=== PATIENT | female | born 1950 | race Caucasian/White ===

== ENCOUNTER 2016-11-26 17:13 | Emergency (ER) | payer BC, OTHER ==
[~2016-11-26] VITALS: Ht 165.1 cm; Wt 70.0 kg
[2016-11-26 17:15] VITALS: BP 202/119; PULSE 104; RESP 20; TEMP 98.1; O2SAT 98
[2016-11-26 17:25] VITALS: BP 119/80; PULSE 107; RESP 20; O2SAT 96
--- NOTE | 2016-11-26 17:30 | PD ---
HPI Chief Complaint: Nosebleed Time Seen by Provider: 17:24 Travel History International Travel<30 days: No Contact w/Intl Traveler<30days: No Traveled to known affect area: No History of Present Illness HPI 66-year-old female presents with bleeding from her gums and her nose over the past couple hours. She states that she hasn't had this before that she knows about. She states that she usually goes to [facility] but she wanted to come here to get a different opinion. She states that she has no other concurrent complaints. She brought her bag of tissues with her to show the amount of bleeding and she has a large bag noted with tissues with blood on them. She does not know if the bleeding is coming from one side more than the other and just feels like it's coming from everywhere. She states she doesn't take any blood thinners that she is aware of. She does state that she also bruises easily. PFSH Past Medical History Narrative Medical breast cancer, neuropathy, ADD, htn Cancer: Yes (BREAST) Hypertension: Yes Neurologic: Yes (NEUROPATHY) Tetanus Vaccination: < 5 Years Influenza Vaccination: Yes ?: Not Past Surgical History Abdominal Surgery: Yes (GASTRIC BYPASS, HERNIA) Cholecystectomy: Yes Hysterectomy: Yes Mastectomy: Yes (lumpectomy and lymph node resection) Social History Alcohol Use: No Tobacco Use: No Substance Use: No Allergies-Medications (Allergen,Severity, Reaction): Coded Allergies: No Known Allergies (Unverified , 11/26/16) Reported Meds & Prescriptions Reported Meds & Active Scripts Active Reported Gabapentin Unknown Strength Cap 1 Tab PO TID Cymbalta DR (Duloxetine HCl) Unknown Strength Capdr 1 Tab PO BID Benazepril (Benazepril HCl) Unknown Strength Tab 1 Tab PO BID Review of Systems Except as stated in HPI: all other systems reviewed are Neg Physical Exam Narrative GENERAL: Well-nourished, well-developed patient. SKIN: Warm and dry. HEAD: Normocephalic and atraumatic. EYES: No injection or drainage. ENT: Small amount of blood noted to left nare, blood noted to oropharynx and small amount of oozing around lower gums NECK: Supple, trachea midline. CARDIOVASCULAR: Regular rate and rhythm RESPIRATORY: Breath sounds equal bilaterally. No accessory muscle use. NEUROLOGICAL: Awake and alert. Motor and sensory grossly within normal limits. Normal speech. Data Data Last Documented VS Vital Signs Date Time Temp Pulse Resp B/P Pulse Ox O2 Delivery O2 Flow Rate FiO2 11/26/16 17:47 98 Room Air 11/26/16 17:25 107 20 119/80 11/26/16 17:15 98.1 Orders Magnesium (Mg) (11/26/16 17:30) Phosphorus (Po4) (11/26/16 17:30) Complete Blood Count With Diff (11/26/16 17:30) Basic Metabolic Panel (Bmp) (11/26/16 17:30) Act Partial Throm Time (Ptt) (11/26/16 17:30) Prothrombin Time / Inr (Pt) (11/26/16 17:30) Iv Access Insert/Monitor (11/26/16 17:30) Ecg Monitoring (11/26/16 17:30) Oximetry (11/26/16 17:30) Type And Screen (11/26/16 17:30) Labs Laboratory Tests Test 11/26/16 17:35 White Blood Count 7.5 TH/MM3 Red Blood Count 4.01 MIL/MM3 Hemoglobin 11.1 GM/DL Hematocrit 35.1 % Mean Corpuscular Volume 87.5 FL Mean Corpuscular Hemoglobin 27.6 PG Mean Corpuscular Hemoglobin 31.6 % Concent Red Cell Distribution Width 14.3 % Platelet Count 494 TH/MM3 Mean Platelet Volume 7.2 FL Neutrophils (%) (Auto) 63.4 % Lymphocytes (%) (Auto) 25.2 % Monocytes (%) (Auto) 5.5 % Eosinophils (%) (Auto) 5.2 % Basophils (%) (Auto) 0.7 % Neutrophils # (Auto) 4.7 TH/MM3 Lymphocytes # (Auto) 1.9 TH/MM3 Monocytes # (Auto) 0.4 TH/MM3 Eosinophils # (Auto) 0.4 TH/MM3 Basophils # (Auto) 0.1 TH/MM3 CBC Comment DIFF FINAL Differential Comment Prothrombin Time 10.7 SEC Prothromb Time International 1.0 RATIO Ratio Activated Partial 28.3 SEC Thromboplast Time Sodium Level 142 MEQ/L Potassium Level 3.5 MEQ/L Chloride Level 104 MEQ/L Carbon Dioxide Level 32.4 MEQ/L Anion Gap 6 MEQ/L Blood Urea Nitrogen 9 MG/DL Creatinine 0.60 MG/DL Estimat Glomerular Filtration 101 ML/MIN Rate Random Glucose 107 MG/DL Calcium Level 9.0 MG/DL Phosphorus Level 3.4 MG/DL Magnesium Level 2.3 MG/DL Blood Type O POSITIVE Antibody Screen NEGATIVE Blood Bank Comment MDM Medical Decision Making Medical Screen Exam Complete: Yes Emergency Medical Condition: Yes Interpretation(s) CBC & BMP Diagram 11/26/16 17:35 Differential Diagnosis Anemia, thrombocytopenia, von Willebrand's disease, hypercoagulable.... Narrative Course Will check blood work and monitor. No indication currently for nasal packing given only small amount from left nare, bleeding is mainly from gums Bleeding has stopped on exam. Labs are stable. Patient states she has follow- up with her primary tomorrow. Advised to follow with them for further care and given return instructions. Patient is concerned this is her third visit for this between [facility] and [facility] and I told her there is no indication for her to stay currently but to return if she has any emergent need, patient has not been to [facility] and [place] records not received by time of patient discharge Diagnosis Primary Impression: Bleeding gums Patient Instructions: General Instructions Additional Instructions: follow with primary tommorrow, return as needed, if significant bleeding returns apply pressure for 5 minutes Med/Other Pt SpecificInfo: No Change to Meds Disposition: 01 DISCHARGE HOME Condition: Stable Cinda Ayers MD Nov 26, 2016 17:30
[2016-11-26 17:47] VITALS: O2SAT 98
[2016-11-26] MEDS ORDERED: BENA5TAB PO (17:52)
[2016-11-26] MEDS ORDERED: GABA100C4 PO (17:52)
[2016-11-26] MEDS ORDERED: DULO20 PO (17:52)
[2016-11-26 17:59] LABS: AUTOMATED NEUTROPHIL # 4.7 TH/MM3 (1.8-7.7); BASOPHIL # 0.1 TH/MM3 (0-0.2); BASOPHIL % 0.7 % (0.0-2.0); EOSINOPHIL # 0.4 TH/MM3 (0-0.4); EOSINOPHIL % 5.2 % (0.0-4.0); HEMATOCRIT 35.1 % (35.0-46.0); HEMO FLAGS DIFF FINAL; LYMPH % 25.2 % (9.0-44.0); LYMPHOCYTE # 1.9 TH/MM3 (1.0-4.8); MEAN CELL VOLUME 87.5 FL (80.0-100.0); MEAN CORPUSCULAR HEMOGLOBIN 27.6 PG (27.0-34.0); MEAN CORPUSCULAR HGB CONC 31.6 % (32.0-36.0); MONO % 5.5 % (0.0-8.0); NEUT % 63.4 % (16.0-70.0); PLATELET COUNT 494 TH/MM3 (150-450); RED BLOOD COUNT 4.01 MIL/MM3 (4.00-5.30); RED CELL DISTRIBUTION WIDTH 14.3 % (11.6-17.2); WHITE BLOOD COUNT 7.5 TH/MM3 (4.0-11.0)
[2016-11-26 18:08] LABS: APTT (PATIENT) 28.3 SEC (24.3-30.1); PROTHROMBIN TIME - PATIENT 10.7 SEC (9.8-11.6)
[2016-11-26 18:27] LABS: BICARBONATE 32.4 MEQ/L (21.0-32.0); MAGNESIUM 2.3 MG/DL (1.5-2.5); POTASSIUM 3.5 MEQ/L (3.5-5.1)
== END 2016-11-26 18:52 | disposition home or self-care (01) ==
LOC: NEPE 17:13
DX: K06.8 Other specified disorders of gingiva and edentulous alveolar ridge (principal); R04.0 Epistaxis; I10 Essential (primary) hypertension; G62.9 Polyneuropathy, unspecified
CPT/HCPCS: 80048; 83735; 84100; 85025; 85610; 85730; 86850; 86900; 86901; 99283